=== PATIENT | male | born 1990 | race Caucasian/White ===

== ENCOUNTER 2017-03-05 08:31 | Emergency (ER) | payer OTHER ==
[~2017-03-05] VITALS: Ht 180.3 cm; Wt 82.4 kg
[2017-03-05 08:57] VITALS: BP 169/87
[2017-03-05] MEDS ORDERED: IBUP-1022 PO (09:07)
[2017-03-05] MEDS ORDERED: TYLE325T5 PO (09:07)
== END 2017-03-05 10:25 | disposition home or self-care (01) ==
LOC: M ED 08:31
DX: R31.0 Gross hematuria (principal); M54.9 Dorsalgia, unspecified